=== PATIENT | male | born 1975 | race Caucasian/White ===

== ENCOUNTER 2019-09-30 17:04 | Inpatient (IN) ==
[2019-09-30] MEDS ORDERED: NITROGLYCERIN 2% OINTMENT 30GM TUBE EXT STA (17:35)
[2019-09-30] MEDS ORDERED: ASPIRIN CHEW 324 MG PO STA (17:35)
[2019-09-30] MEDS ORDERED: METOPROLOL TARTRATE 1 MG/ML VIAL IV STA (17:35)
--- NOTE | 2019-09-30 17:39 | Emergency Department Note ---
Impression & Plan Precordial chest pain, Anemia, SOB (shortness of breath), Heme positive stool ED Provider Note NAME: CATHIE EPPS III AGE: 44 SEX: M : 1975 ARRIVES VIA: Walk-In INFORMANT: [Patient] ED PROVIDER(S): [Tristan Suero MD] CHIEF COMPLAINT: Chest pain HISTORY OF PRESENT ILLNESS: The patient is a 44-year-old male presents to the ER with a 10-minute episode of sharp left chest pain that he rates as a 6/10. The pain came on at rest. He took a nitroglycerin and the pain seemed to resolve. The pain did not radiate. He was not sweating or nauseated. The patient states that in the last 2 weeks, he has noticed some dyspnea on exertion although there has been no chest pain on exertion. The patient has not had cough, cold or congestion. He has not had a fever. He has no known coronavirus exposures. The patient states that he did have a heart attack about a year and a half ago. He states that he has an LAD stent. He is on aspirin daily. Patient has never had a DVT or PE, he has no family history of this diagnosis. He has not been immobile in a plane, car or train. REVIEW OF SYSTEMS: See HPI for pertinent positives and negatives. A total of ten systems were reviewed and were otherwise negative. PMHx/PSHx: See Below SOCIAL HISTORY: See Below. PHYSICAL EXAM: GENERAL: Patient is in no acute distress. HEENT: No acute trauma, normocephalic atraumatic, mucous membranes moist, no nasal congestion, no scleral icterus. NECK: No stridor, no adenopathy, no meningismus, trachea is midline. LUNGS: Clear to auscultation bilaterally, no wheeze, no rhonchi, breath sounds equal. HEART: Mildly tachycardic, regular rhythm, no murmurs. ABDOMEN: Soft, nontender, bowel sounds positive, no hernias, no peritonitis. EXTREMITIES: No cyanosis or edema, full range of motion of all the joints without pain or difficulty, no signs for acute trauma. NEUROLOGIC: Oriented x 3, no acute motor or sensory deficits, no focal weakness. SKIN: No rash, no jaundice, no diaphoresis. Rectal: Brown stool, heme positive. DIFFERENTIAL DIAGNOSIS: Cardiac ischemia, aortic dissection, pulmonary embolism, pneumothorax, pneumonia, pericarditis, myocarditis, esophageal rupture, GERD, cholecystitis, pancreatitis, musculoskeletal, as well as other pathologies. EMERGENCY DEPARTMENT COURSE/PROCEDURES: ECG: Indication was chest pain. The ECG shows a normal sinus rhythm with a rate of 100. There is some very subtle ST depression laterally. The QTc is 438. No PVCs. Compared to an ECG from 23 May 2018, there is no significant change. Continuous Cardiac Monitoring: An order was placed for continuous cardiac monitoring. The monitor shows a rate of 96 with normal sinus rhythm. MEDICAL DECISION MAKING: There is no leukocytosis. The patient is anemic with a hemoglobin of 10, this is a new finding for him. There is a normal platelet count. No coagulopathy. There is some mild renal insufficiency with a creatinine of 1.43. No concerning electrolyte abnormality in need of correction. There was no liver enzyme elevation. No evidence for pancreatitis. EKG showed a sinus rhythm, there was no acute ischemia. Cardiac enzyme testing x1 is not consistent with acute cardiac injury. Chest film did not show pneumonia or CHF, there was no mediastinal widening. Rectal exam was performed and was heme positive. The patient presents with shortness of breath and chest pain. He received IV saline for hydration. He was given a dose of IV Protonix given the findings of anemia and heme positive stool. He received a dose of oral aspirin for his complaints of chest pain. He was placed on 1 inch of Nitropaste. Patient presents with precordial chest pain and shortness of breath. He does have a coronary history. I do think further monitoring/work-up in the hospital is warranted. With the findings of anemia, GI bleeding is a concern and certainly, this loss of blood could have led to his other symptoms. I did speak with the patient, I spoke with the family preservation caseworker. The on-call hospitalist was consulted. 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 Beliefs That Will Affect Care: None marital status: single Current Living Situation: Alone current occupational status: employed current occupation: [employer] Other Information That Helps Us Care for You: No Feels Safe at Home: Yes Safety Concerns: Feels Safe At This Time Smoking Status: Former smoker Tobacco Type: cigarettes ; Cigarettes Per Day: 20 ; Do You Dip or Chew Tobacco: No ; Second Hand Exposure: No ; Hx Alcohol Use: Yes Alcohol type: hard liquor Hx Substance Use: No Allergies Allergies Allergy/AdvReac Type Severity Reaction Status Date / Time No Known Drug Allergies Allergy Unknown Verified 09/30/19 19:17 lactose AdvReac U Unknown Verified 09/30/19 19:17 YELLOW JACKETS Allergy Anaphylaxis Uncoded 09/30/19 19:17 Home Meds Home Medications Medication Instructions Recorded Confirmed buspirone 15 mg PO BID 04/25/18 09/30/19 lorazepam 0.5 mg tablet 0.5 mg PO TID PRN tab 11/12/18 09/30/19 omeprazole 20 mg tablet,delayed 20 mg PO DAILY tab 02/04/19 09/30/19 release bupropion HCl [Wellbutrin XL] 300 mg PO DAILY 07/29/19 09/30/19 triamcinolone acetonide 2 sprays INTRANASAL DAILY PRN 07/29/19 09/30/19 biotin 5 mg PO DAILY 09/30/19 09/30/19 cetirizine [Zyrtec] 10 mg PO DAILY 09/30/19 09/30/19 citalopram 5 mg PO DAILY 09/30/19 09/30/19 coenzyme Q10 [CoQ-10] 100 mg PO DAILY 09/30/19 09/30/19 metformin 500 mg PO BID 09/30/19 09/30/19 Previous Rx's Medication Instructions Recorded aspirin [Ecotrin Low Strength] 81 mg PO QAM #7 tab 04/28/18 nitroglycerin [Nitrostat] 0.4 mg SUBLINGUAL Q5M PRN #14 tab 04/28/18 albuterol sulfate 90 mcg/actuation 2 puffs INHALATION Q6H PRN #1 gm 10/29/18 aerosol inhaler atorvastatin 80 mg tablet 80 mg PO QPM #90 tab 06/17/19 lisinopril 5 mg tablet 5 mg PO DAILY #90 tab 06/17/19 epinephrine 0.3 mg/0.3 mL 0.3 mg IM UD PRN #2 ea 08/12/19 injection, auto-injector metoprolol tartrate 25 mg tablet 12.5 mg PO BID #180 tab 09/07/19 Results & Data (ED) Vital Signs Vital Signs - 24 hr 09/30/19 17:06 09/30/19 17:32 09/30/19 17:50 Temperature 36.8 C Temperature Source Oral Pulse Rate 118 H 95 H 98 H Pulse Rate from SpO2 Sensor 97 H Respiratory Rate 20 18 15 Respiratory Effort / Characteristics Non-Labored Respiratory Depth Normal Blood Pressure 156/95 H 149/92 H Blood Pressure Mean 115 109 Blood Pressure Position Sitting Pulse Oximetry 99 96 Oxygen Delivery Method Room Air Sepsis Recent Fever Within 48 Hours No Sepsis New/Unexplained Change in Mental Status No Sepsis Action Taken by Nursing No Action Required 09/30/19 17:51 09/30/19 17:54 09/30/19 18:04 Temperature Temperature Source Pulse Rate 97 H 98 H Pulse Rate from SpO2 Sensor 99 H Respiratory Rate 20 22 Respiratory Effort / Characteristics Respiratory Depth Blood Pressure Blood Pressure Mean Blood Pressure Position Pulse Oximetry 96 93 Oxygen Delivery Method Room Air Sepsis Recent Fever Within 48 Hours Sepsis New/Unexplained Change in Mental Status Sepsis Action Taken by Nursing 09/30/19 18:06 09/30/19 18:07 09/30/19 18:09 Temperature Temperature Source Pulse Rate 98 H 98 H 94 H Pulse Rate from SpO2 Sensor 94 H Respiratory Rate 16 19 Respiratory Effort / Characteristics Respiratory Depth Blood Pressure 159/104 H 159/104 H 148/98 H Blood Pressure Mean 116 103 Blood Pressure Position Pulse Oximetry 95 Oxygen Delivery Method Sepsis Recent Fever Within 48 Hours Sepsis New/Unexplained Change in Mental Status Sepsis Action Taken by Nursing 09/30/19 18:10 09/30/19 18:30 09/30/19 18:31 Temperature Temperature Source Pulse Rate 90 94 H 93 H Pulse Rate from SpO2 Sensor 90 95 H 93 H Respiratory Rate 20 17 21 Respiratory Effort / Characteristics Respiratory Depth Blood Pressure 156/94 H Blood Pressure Mean 114 Blood Pressure Position Pulse Oximetry 96 94 95 Oxygen Delivery Method Sepsis Recent Fever Within 48 Hours Sepsis New/Unexplained Change in Mental Status Sepsis Action Taken by Nursing 09/30/19 19:00 09/30/19 19:01 Temperature Temperature Source Pulse Rate 94 H 90 Pulse Rate from SpO2 Sensor 94 H 91 H Respiratory Rate 21 18 Respiratory Effort / Characteristics Respiratory Depth Blood Pressure 163/100 H Blood Pressure Mean 112 Blood Pressure Position Pulse Oximetry 94 93 Oxygen Delivery Method Sepsis Recent Fever Within 48 Hours Sepsis New/Unexplained Change in Mental Status Sepsis Action Taken by Skilled Nursing Medications Current Medication List: was personally reviewed by me Laboratory Data Attestation: I reviewed the patient's lab results. Result diagrams: 09/30/19 23:17 09/30/19 17:48 Lab Results 09/30/19 09/30/19 09/30/19 Range/Units 17:48 17:48 17:48 WBC 8.67 (4.8-10.8) K/uL RBC 4.23 L (4.7-6.1) M/uL Hgb 10.0 L (14.0-18.0) g/dL Hct 32.5 L (42-52) % MCV 76.8 L (80-100) fL MCH 23.6 L (25-34) pg MCHC 30.8 L (32-36) g/dL RDW Std Deviation 50.2 H (36.4-46.3) fL RDW Coeff of Abhijeet 17.6 H (11.5-14.5) % Plt Count 302 (130-400) K/uL MPV 9.7 (7.4-10.4) fL Immature Gran % (Auto) 0.3 % Neut % (Auto) 54.8 % Lymph % (Auto) 34.1 % [place] % (Auto) 10.0 % Eos % (Auto) 0.6 % Baso % (Auto) 0.2 % Neut # (Auto) 4.74 (1.4-6.5) K/uL Lymph # (Auto) 2.96 (1.2-3.4) K/uL [place] # (Auto) 0.87 H (0.11-0.59) K/uL Eos # (Auto) 0.05 (0-0.5) K/uL Baso # (Auto) 0.02 (0-0.2) K/uL Immature Gran # (Auto) 0.03 H (0.00-0.02) K/uL PT 9.9 (9.0-12.0) Seconds INR 0.9 (0.9-1.1) APTT 24.7 (21.0-31.0) Seconds PTT Ratio 0.9 Sodium 137 (136-145) mmol/L Potassium 3.4 L (3.5-5.1) mmol/L Chloride 106 (98-107) mmol/L Carbon Dioxide 23 (21-32) mmol/L Anion Gap 8.0 (3-11) BUN 10 (7-18) mg/dl Creatinine 1.43 H (0.6-1.4) mg/dl Est Cr Clr Drug Dosing 77.4 ml/min Est GFR ( Amer) 69.5 Est GFR (Non-Af Amer) 60.0 BUN/Creatinine Ratio 7.1 L (10-20) Glucose 113 H (70-99) mg/dl Calcium 8.7 (8.5-10.1) mg/dl Magnesium 2.0 (1.8-2.4) mg/dl Total Bilirubin 0.4 (0.2-1) mg/dl AST 26 (15-37) U/L ALT 49 (12-78) U/L Alkaline Phosphatase 113 (45-117) U/L Troponin I < 0.015 (0-0.045) ng/ml Total Protein 8.2 (6.4-8.2) gm/dl Albumin 3.7 (3.4-5.0) gm/dl Globulin 4.5 H (2.5-4.0) gm/dl Albumin/Globulin Ratio 0.8 L (0.9-2) Lipase 146 (73-393) U/L Administered Medications Atorvastatin Calcium (Lipitor) 80 mg PO QPM IZABELLA Stop: 10/30/19 22:04 Last Admin: 09/30/19 23:00 Dose: 80 mg Documented by: [id number] Buspirone HCl (Buspar) 15 mg PO BID IZABELLA Stop: 10/30/19 22:04 Last Admin: 09/30/19 23:01 Dose: 15 mg Documented by: [id number] Potassium Chloride/Sodium Chloride (Normal Saline W/20 Meq Kcl) 20 meq in 1,000 mls @ 125 mls/hr IV .Q8H IZABELLA Stop: 10/01/19 14:14 Last Admin: 09/30/19 23:02 Dose: 125 mls/hr Documented by: [id number] Pantoprazole Sodium 40 mg/ (Syringe) 10 mls @ 5 mls/min IV BID IZABELLA Stop: 10/30/19 22:04 Last Admin: 09/30/19 23:02 Dose: 5 mls/min Documented by: [id number] Insulin Aspart (Novolog Flexpen) 0 units SC ACHS IZABELLA Stop: 09/30/19 23:59 Last Admin: 09/30/19 23:12 Dose: Not Given Documented by: [id number] Cosigned by: [id number] Metoprolol Tartrate (Lopressor) 12.5 mg PO BID IZABELLA Stop: 10/30/19 22:04 Last Admin: 09/30/19 23:01 Dose: 12.5 mg Documented by: [id number] Discontinued Medications Aspirin (Aspirin) 324 mg PO NOW STA Stop: 09/30/19 17:36 Last Admin: 09/30/19 18:04 Dose: 324 mg Documented by: [id number] Sodium Chloride (Nss) 500 mls @ 999 mls/hr IV .Q31M IZABELLA Stop: 09/30/19 18:15 Last Infusion: 09/30/19 18:38 Dose: 0 mls/hr Documented by: [id number] Admin: 09/30/19 18:03 Dose: 999 mls/hr Documented by: [id number] Pantoprazole Sodium 80 mg/ (Dextrose) 100 mls @ 400 mls/hr IV ONE STA Stop: 09/30/19 18:49 Last Infusion: 09/30/19 19:21 Dose: 0 mls/hr Documented by: [id number] Admin: 09/30/19 19:01 Dose: 400 mls/hr Documented by: [id number] Metoprolol Tartrate (Lopressor) 5 mg IV NOW STA Stop: 09/30/19 17:36 Last Admin: 09/30/19 18:06 Dose: 5 mg Documented by: [id number] Nitroglycerin (Nitro-Bid 2%) 1 inch EXT NOW STA Stop: 09/30/19 17:36 Last Admin: 09/30/19 18:04 Dose: 1 inch Documented by: [id number] Imaging Data Radiologist's Impression: XR chest 1V portable CLINICAL HISTORY: Chest Pain dyspnea COMPARISON STUDY: 05/23/2018 FINDINGS: The bones soft tissues and hemidiaphragms are normal. The cardiomediastinal silhouette is normal. The lungs are clear. The pulmonary vasculature is normal. IMPRESSION: Negative chest. Blood Pressure Blood Pressure Findings: Elevated blood pressure Blood Pressure Disposition: further management by hospitalist Discharge Plan Visit Data Chief Complaint: Chest Pain Stated Complaint: CHEST PAIN,TOOK NITRO ED Provider: Tristan Suero Discharge Problem: Precordial chest pain, Anemia, SOB (shortness of breath), Heme positive stool Patient Disposition: Admitted As Inpatient Condition: Good Discharge Problem: Anemia Qualifiers: Anemia type: unspecified type Qualified Code(s): D64.9 - Anemia, unspecified
[2019-09-30] MEDS ORDERED: SODIUM CHLORIDE 0.9% 500 ML IV SCH (17:45)
--- NOTE | 2019-09-30 17:47 | XRay Report ---
XR chest 1V portable CLINICAL HISTORY: Chest Pain dyspnea COMPARISON STUDY: 05/23/2018 FINDINGS: The bones soft tissues and hemidiaphragms are normal. The cardiomediastinal silhouette is n ormal. The lungs are clear. The pulmonary vasculature is normal. IMPRESSION: Negative chest. ACT 112: Negative or not required by law. The above report was generated using voice recognition software. It may contain grammatical, syntax or spelling errors. Electronically signed by: Kareem Lozano M.D. 09/30/2019 5:46 PM
[2019-09-30 18:08] LABS: Basophils # (auto) 0.02 K/uL (0-0.2); Basophils % (auto) 0.2 %; Eosinophils # (auto) 0.05 K/uL (0-0.5); Eosinophils % (auto) 0.6 %; Hematocrit (blood only) 32.5 % (42-52); Immature Granulocytes # (auto) 0.03 K/uL (0.00-0.02); Immature Granulocytes % (auto) 0.3 %; Lymphocytes # (auto) 2.96 K/uL (1.2-3.4); Lymphocytes % (auto) 34.1 %; Mean Corpuscular Hemoglobin 23.6 pg (25-34); Mean Corpuscular Hgb Conc 30.8 g/dL (32-36); Mean Corpuscular Volume 76.8 fL (80-100); Mean Platelet Volume 9.7 fL (7.4-10.4); Monocytes # (auto) 0.87 K/uL (0.11-0.59); Neutrophils # (auto) 4.74 K/uL (1.4-6.5); Neutrophils % (auto) 54.8 %; Platelet Count 302 K/uL (130-400); RDW Coefficient of Variation 17.6 % (11.5-14.5); RDW Standard Deviation 50.2 fL (36.4-46.3); Red Blood Count 4.23 M/uL (4.7-6.1); White Blood Count 8.67 K/uL (4.8-10.8)
[2019-09-30 18:18] LABS: INR 0.9 (0.9-1.1); Partial Thromboplastin Ratio 0.9; Partial Thromboplastin Time 24.7 Seconds (21.0-31.0); Prothrombin Time 9.9 Seconds (9.0-12.0)
[2019-09-30 18:27] LABS: Alanine Aminotransferase 49 U/L (12-78); Albumin Level 3.7 gm/dl (3.4-5.0); Aspartate Aminotransferase 26 U/L (15-37); BUN Creatinine Ratio 7.1 (10-20); Blood Urea Nitrogen 10 mg/dl (7-18); Calcium 8.7 mg/dl (8.5-10.1); Carbon Dioxide 23 mmol/L (21-32); Chloride 106 mmol/L (98-107); Creatinine Clr Calc Pharmacy 77.4 ml/min; Est GFR (African American) 69.5; Glucose 113 mg/dl (70-99); Lipase 146 U/L (73-393); Potassium 3.4 mmol/L (3.5-5.1); Sodium 137 mmol/L (136-145)
[2019-09-30 18:32] LABS: Albumin Globulin Ratio 0.8 (0.9-2); Alkaline Phosphatase 113 U/L (45-117); Bilirubin,Total 0.4 mg/dl (0.2-1); Globulin 4.5 gm/dl (2.5-4.0); Total Protein 8.2 gm/dl (6.4-8.2); Troponin I < 0.015 ng/ml (0-0.045)
[2019-09-30] MEDS ORDERED: PANTOprazole 80 MG in DEXTROSE 5% 100 ML IV STA (18:35)
--- NOTE | 2019-09-30 18:57 | History & Physical Report ---
Date of Service September 30, 2019 Assessment & Plan (1) Chest pain: This pt has a known cardiac history with sudden after a stress test in 11/17 and resultant LAD stent. The Patient is a 2 weeks of exertional dyspnea chest pain at rest relieved with nitro however he is also found to be anemic with heme positive stools. His initial troponin and EKG are negative and unchanged. We will trend his troponins however will will also evaluate for anemia. will check a resting echo Given the significance of his previous event and interdependence of cardiac clearance if his microcytic anemia will need to be worked up, will have cardiology input to decide if we need to pursue repeat stress tesing to rule out further CAD incase he would require EGD to eval for upper GI tract issues to cause amenia, or colonoscopy to further eval rectal bleeding. Patient given aspirin in the ER he will be continued on oxygen and a baby aspirin daily as well has metoprolol (2) CAD (coronary artery disease): Patient had a complicated history of STEMI with cardiac arrest. Patient does have an LAD stent. Patient is maintained on aspirin 81 atorvastatin 80 lisinopril 5 metoprolol 12.5 twice daily (3) Anemia: this is a micorcytic anemia that is symptomatic, HGB is 10 but maybe associated with CP/PASCUAL Patient will have a B12 folate iron studies checked hemoglobin will be checked around 11 PM and also 7 AM. Be placed on Protonix twice daily. GI consultation, to help determine if endoscopy would be required, will need cardiac issues settled prior to unless considered emergent .If procedure is required may require pre procedure covid testing He is not in need of transfusion at this point time was he develops further chest pain worse hemoglobin dropped significantly below 10 g (4) Diabetes: Patient has been on metformin 500 twice daily as an outpatient, will check A1c, and have ssi (5) Depression: Patient is on BuSpar 15 twice daily and Wellbutrin 300 a day and citalopram these will be continued (6) DVT prophylaxis: History of Present Illness Primary Care Provider: Kareem Santillan 44-year-old male presents to the ER with a 10-minute episode of left chest/upper left abdominal pain that started at rest. He took a nitroglycerin and the pain resolved. The pain did not radiate. He was not sweating or nauseated. The patient states that in the last 2 weeks, he has noticed some dyspnea on exertion although there has been no chest pain on exertion. this pt has a significant history of sudden after stress testing and subsequent stemi and LAD stent April of 2018. He typically follows with Dr Velarde. he states he has completed his brillinta and remains on aspirin. He is also found to have a microcytic anemia and states he typically has been bothered by a severely bleeding internal hemorrhoid, he states that at times it makes the toilet bowel dark red, he is found to be heme positive here in the ER Most recently he has been bothered by PASCUAL and has been in contact with Dr Reyes regarding asthma, he did have PFT's 11/17 with only very mild obstructive airway disease The patient has not had cough, cold or congestion. He has not had a fever. He has no known coronavirus exposures. Patient has never had a DVT or PE, he has no family history of this diagnosis. He has not been immobile in a plane, car or train. Allergies Allergy/AdvReac Type Severity Reaction Status Date / Time No Known Drug Allergies Allergy Unknown Verified 09/30/19 19:17 lactose AdvReac U Unknown Verified 09/30/19 19:17 YELLOW JACKETS Allergy Anaphylaxis Uncoded 09/30/19 19:17 Home Medications Home Medications Medication Instructions Recorded Confirmed Type buspirone 15 mg PO BID 04/25/18 09/30/19 History aspirin [Ecotrin Low Strength] 81 mg PO QAM #7 tab 04/28/18 09/30/19 Rx nitroglycerin [Nitrostat] 0.4 mg SUBLINGUAL Q5M PRN #14 tab 04/28/18 09/30/19 Rx albuterol sulfate 90 mcg/actuation 2 puffs INHALATION Q6H PRN #1 gm 10/29/18 09/30/19 Rx aerosol inhaler lorazepam 0.5 mg tablet 0.5 mg PO TID PRN tab 11/12/18 09/30/19 History omeprazole 20 mg tablet,delayed 20 mg PO DAILY tab 02/04/19 09/30/19 History release atorvastatin 80 mg tablet 80 mg PO QPM #90 tab 06/17/19 09/30/19 Rx lisinopril 5 mg tablet 5 mg PO DAILY #90 tab 06/17/19 09/30/19 Rx bupropion HCl [Wellbutrin XL] 300 mg PO DAILY 07/29/19 09/30/19 History triamcinolone acetonide 2 sprays INTRANASAL DAILY PRN 07/29/19 09/30/19 History epinephrine 0.3 mg/0.3 mL 0.3 mg IM UD PRN #2 ea 08/12/19 09/30/19 Rx injection, auto-injector metoprolol tartrate 25 mg tablet 12.5 mg PO BID #180 tab 09/07/19 09/30/19 Rx biotin 5 mg PO DAILY 09/30/19 09/30/19 History cetirizine [Zyrtec] 10 mg PO DAILY 09/30/19 09/30/19 History citalopram 5 mg PO DAILY 09/30/19 09/30/19 History coenzyme Q10 [CoQ-10] 100 mg PO DAILY 09/30/19 09/30/19 History metformin 500 mg PO BID 09/30/19 09/30/19 History Past Med/Surg History Family History Mother Diabetes Father Hypertension Denies family history of Prostate cancer Myocardial infarction Colorectal cancer Social History Preferred Language: Icelandic Communication Ability: Effective 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 Beliefs That Will Affect Care: None marital status: single Current Living Situation: Alone current occupational status: employed current occupation: [employer] Feels Safe at Home: Yes Smoking Status: Former smoker Tobacco Type: cigarettes ; Cigarettes Per Day: 20 ; Second Hand Exposure: No ; Hx Alcohol Use: Yes Alcohol type: hard liquor Hx Substance Use: No Review of Systems Review of Systems: Mild distress and increasing fatigue no headache, blurry or double vision no speech or swallowing issues no chest pain, pressure or palpitations shortness of breath with exertion worsening of late, no cough or wheezes no abdominal pain, nausea or vomiting, diarrhea or constipation, does have rectal bleeding no dysuria, hematuria or frequency no focal joint pain or swelling no back pain, CVA tenderness or radicular pain no bruising, bleeding or rashes no focal signs of weakness or numbness or altered sensation no complaints or anxiety or depression. Physical Exam Physical Exam: The patient appeared well nourished and normally developed. he appeared anxious Vital signs as documented. Head exam is normocephalic atraumatic no scleral icterus Neck is without JVD, thyromegaly, or carotid bruits. Lungs are clear to auscultation, no focal loss of breath sounds, no wheezes heard Cardiac exam, Rhythm is regular.. No murmurs, rubs or gallops. Abdominal exam reveals normal bowel sounds, soft non tender, no masses rectal exam performed by ER shows heme positive stools Extremities are nonedematous and both pedal pulses are normal. Neurologic exam is alert and oriented, no focal loss of strength or sensation Skin is without bruises or rashes Psychologically is without concerns for anxiety or depression Results & Data Results & Data ([facility]) Vital Signs (Past 12 Hours) Vital Signs Temp Pulse Resp BP Pulse Ox 09/30/19 18:31 93 H 21 95 09/30/19 18:30 94 H 17 156/94 H 94 09/30/19 18:10 90 20 96 09/30/19 18:09 94 H 19 148/98 H 95 09/30/19 18:07 98 H 16 159/104 H 09/30/19 18:06 98 H 159/104 H 09/30/19 18:04 98 H 22 09/30/19 17:54 93 09/30/19 17:51 97 H 20 96 09/30/19 17:50 98 H 15 149/92 H 96 09/30/19 17:32 95 H 18 09/30/19 17:06 98.2 F 118 H 20 156/95 H 99 Chest x-ray is unremarkable PG Care Time/CCT Total # of Minutes Spent Total Time Spent with Patient: Total time spent is greater than 50% in coordination of care (as documented) at patient's floor/unit and/or counseling patient: Coding Level of Care Code 88787 Initial Inpt Care Lvl 3 Diagnoses Chest pain R07.9 CAD (coronary artery disease) I25.10 Anemia D64.9 Diabetes E11.9 Depression F32.9 DVT prophylaxis Z29.9
[2019-09-30] MEDS ORDERED: LORazepam 0.5 MG TAB PO PRN (22:05)
[2019-09-30] MEDS ORDERED: NITROGLYCERIN SL 0.4 MG/TAB TAB SL PRN (22:05)
[2019-09-30] MEDS ORDERED: CARBOHYDRATES FOR HYPOGLYCEMIA PO PRN (22:05)
[2019-09-30] MEDS ORDERED: ALUMINUM/MAGNESIUM SUSP 30 ML UDC PO PRN (22:05)
[2019-09-30] MEDS ORDERED: ONDANSETRON INJ 2 MG/ML 2 ML VIAL IV PRN (22:05)
[2019-09-30] MEDS ORDERED: MoRPHine SULFATE 2 MG/ML CARP IV PRN (22:05)
[2019-09-30] MEDS ORDERED: GLUCOSE 10 TABS/TUBE PO PRN (22:05)
[2019-09-30] MEDS ORDERED: DEXTROSE 50% 50 ML SYRINGE IV PRN (22:05)
[2019-09-30] MEDS ORDERED: GLUCOSE 40% GEL 15 GM TUBE PO PRN (22:05)
[2019-09-30] MEDS ORDERED: ACETAMINOPHEN 325 MG TAB PO PRN (22:05)
[2019-09-30] MEDS ORDERED: GLUCAGON FOR INJ 1 MG VIAL SQ PRN (22:05)
[2019-09-30] MEDS ORDERED: INSULIN ASPART 100 UNITS/ML 3 ML PEN SC SCH (22:05)
[2019-09-30] MEDS: ATORVASTATIN 40 MG TAB PO SCH (23:00)
[2019-09-30] MEDS: BusPIRone 15 MG TAB PO SCH (23:01)
[2019-09-30] MEDS: METOPROLOL TARTRATE 25 MG TAB PO SCH (23:01)
[2019-09-30] MEDS: PANTOprazole 40 MG in SYRINGE 0 ML IV SCH (23:02)
[2019-09-30] MEDS: NSS + 20MEQ KCL 20 MEQ/1,000 ML BAG IV SCH (23:02)
[2019-09-30] MEDS ORDERED: PHARMACY GLYCEMIC MGMT CONSULT PRN (23:05)
[2019-09-30] MEDS: INSULIN ASPART 100 UNITS/ML 3 ML PEN SC SCH (23:37)
[2019-10-01 05:49] LABS: Hematocrit (blood only) 29.3 % (42-52); Hemoglobin 8.7 g/dL (14.0-18.0); Mean Corpuscular Hemoglobin 23.5 pg (25-34); Mean Corpuscular Hgb Conc 29.7 g/dL (32-36); Mean Corpuscular Volume 79.2 fL (80-100); Mean Platelet Volume 9.6 fL (7.4-10.4); Platelet Count 268 K/uL (130-400); RDW Coefficient of Variation 17.9 % (11.5-14.5); RDW Standard Deviation 51.7 fL (36.4-46.3); White Blood Count 9.63 K/uL (4.8-10.8)
[2019-10-01 05:58] LABS: Estimated Average Glucose 151 mg/dl; Hemoglobin A1C 6.9 % (4.5-5.6)
[2019-10-01] MEDS: INSULIN ASPART 100 UNITS/ML 3 ML PEN SC SCH ×3 (06:20→18:46)
[2019-10-01] MEDS: NSS + 20MEQ KCL 20 MEQ/1,000 ML BAG IV SCH (06:20)
[2019-10-01 06:26] LABS: BUN Creatinine Ratio 8.9 (10-20); Blood Urea Nitrogen 13 mg/dl (7-18); Calcium 7.7 mg/dl (8.5-10.1); Carbon Dioxide 25 mmol/L (21-32); Chloride 112 mmol/L (98-107); Creatinine Clr Calc Pharmacy 79.4 ml/min; Est GFR (African American) 71.3; Est GFR (Non-African American) 61.5; Glucose 100 mg/dl (70-99); Sodium 140 mmol/L (136-145)
[2019-10-01 06:31] LABS: Iron 18 mcg/dl (35-175); Total Iron Binding Capacity 406 mcg/dl (250-450); Troponin I < 0.015 ng/ml (0-0.045)
[2019-10-01 07:43] LABS: Folate (Folic Acid) 9.57 ng/ml (>5.38)
--- NOTE | 2019-10-01 08:17 | Electrocardiogram Report ---
Test Reason : Blood Pressure : / mmHG Vent. Rate : 100 BPM Atrial Rate : 100 BPM P-R Int : 156 ms QRS Dur : 110 ms QT Int : 340 ms P-R-T Axes : 048 044 028 degrees QTc Int : 438 ms Normal sinus rhythm Minor ST depression in Anterior leads Abnormal ECG When compared with ECG of 23-MAY-2018 19:30, Minor ST depression in Anterior leads now present Confirmed by Luis Montes ([id number]) on 10/01/2019 8:16:29 AM Referred By: REFERRED SELF Confirmed By:Luis Montes
--- NOTE | 2019-10-01 08:33 | Electrocardiogram Report ---
Test Reason : Blood Pressure : / mmHG Vent. Rate : 085 BPM Atrial Rate : 085 BPM P-R Int : 172 ms QRS Dur : 106 ms QT Int : 382 ms P-R-T Axes : 050 044 042 degrees QTc Int : 454 ms Normal sinus rhythm Incomplete right bundle branch block Borderline ECG When compared with ECG of 30-SEP-2019 17:13, Minor ST depression in Anterior leads no longer present Confirmed by Luis Montes ([id number]) on 10/01/2019 8:32:57 AM Referred By: REFERRED SELF Confirmed By:Luis Montes
[2019-10-01] MEDS: BuPROPion XL 300 MG TABCR PO SCH (08:34)
[2019-10-01] MEDS: BusPIRone 15 MG TAB PO SCH ×2 (08:34→20:38)
[2019-10-01] MEDS: CITALOPRAM 20 MG TAB PO SCH (08:35)
[2019-10-01] MEDS: ASPIRIN 81 MG ECTAB PO SCH (08:35)
[2019-10-01] MEDS: PANTOprazole 40 MG in SYRINGE 0 ML IV SCH ×2 (08:35→20:37)
[2019-10-01] MEDS: METOPROLOL TARTRATE 25 MG TAB PO SCH ×2 (08:35→20:38)
[2019-10-01] MEDS: lisinopriL 5 MG TAB PO SCH (08:35)
[2019-10-01] MEDS: FLUTICASONE FUROATE 200MCG 14 PUFFS/INHALER INH SCH (08:36)
--- NOTE | 2019-10-01 10:07 | XCELERA ---
[id number]
--- NOTE | 2019-10-01 10:57 | Gastrointestinal Consultation ---
Date of Consultation October 01, 2019 Assessment & Plan (1) Anemia: -Continue to monitor H/H -Protonix 40 mg IV BID -Check Celiac panel -Agree with cardiology assessment of chest pain first, then can consider endoscopic evaluation of anemia & rectal bleeding. -Supportive care per primary team Thank you for allowing us to participate in the care of this patient. If you should have any questions or concerns contact us at extension [phone] or [phone]. Supervising Physician Co-Signing Physician Notes Agree with JOSETTE Arrington Abd: Soft, NT, ND, +BS Cardiology to risk assess patient regarding endoscopic workup Will place on clear liquid diet, and keep NPO after midnight in case we can proceed with EGD + or - Colonoscopy Continue current therapy and supportive care. History of Present Illness Attending Physician: Jannette Coe MD History of Present Illness Patient is a 44 yo male who presented to the ED with chest pain. He has a known cardiac history with a sudden cardiac in October 2018 after a stress test. He did have an intervention at that time with an LAD stent. GI has been consulted as patient is anemic. In May 2018, his hemoglobin was 15.3. His H/H is now 8.7/29.3. He reports bright red blood per rectum with every bowel movement. He also reports epigastric discomfort/reflux. He takes Omeprazole at home, but notes that when he forgets this med his symptoms worsen. He denies NSAID use. He denies personal history of GI issues otherwise. He denies family history of GI malignancy or IBD. Allergies Allergy/AdvReac Type Severity Reaction Status Date / Time No Known Drug Allergies Allergy Unknown Verified 09/30/19 19:17 lactose AdvReac U Unknown Verified 09/30/19 19:17 YELLOW JACKETS Allergy Anaphylaxis Uncoded 09/30/19 19:17 Home Medications Home Medications Medication Instructions Recorded Confirmed Type buspirone 15 mg PO BID 04/25/18 09/30/19 History aspirin [Ecotrin Low Strength] 81 mg PO QAM #7 tab 04/28/18 09/30/19 Rx nitroglycerin [Nitrostat] 0.4 mg SUBLINGUAL Q5M PRN #14 tab 04/28/18 09/30/19 Rx albuterol sulfate 90 mcg/actuation 2 puffs INHALATION Q6H PRN #1 gm 10/29/18 09/30/19 Rx aerosol inhaler lorazepam 0.5 mg tablet 0.5 mg PO TID PRN tab 11/12/18 09/30/19 History omeprazole 20 mg tablet,delayed 20 mg PO DAILY tab 02/04/19 09/30/19 History release atorvastatin 80 mg tablet 80 mg PO QPM #90 tab 06/17/19 09/30/19 Rx lisinopril 5 mg tablet 5 mg PO DAILY #90 tab 06/17/19 09/30/19 Rx bupropion HCl [Wellbutrin XL] 300 mg PO DAILY 07/29/19 09/30/19 History triamcinolone acetonide 2 sprays INTRANASAL DAILY PRN 07/29/19 09/30/19 History epinephrine 0.3 mg/0.3 mL 0.3 mg IM UD PRN #2 ea 08/12/19 09/30/19 Rx injection, auto-injector metoprolol tartrate 25 mg tablet 12.5 mg PO BID #180 tab 09/07/19 09/30/19 Rx biotin 5 mg PO DAILY 09/30/19 09/30/19 History cetirizine [Zyrtec] 10 mg PO DAILY 09/30/19 09/30/19 History citalopram 5 mg PO DAILY 09/30/19 09/30/19 History coenzyme Q10 [CoQ-10] 100 mg PO DAILY 09/30/19 09/30/19 History metformin 500 mg PO BID 09/30/19 09/30/19 History Patient History Medical History Cardiac arrest April 2018 Coronary disease PCI to the LAD April 2018 Depression Exercise-induced asthma GERD (gastroesophageal reflux disease) (Acute) Hyperlipidemia Hypertension (Acute) Prediabetes Surgical History No pertinent past surgical history Family History Mother Diabetes Father Hypertension Denies family history of Prostate cancer Myocardial infarction Colorectal cancer Social History Preferred Language: Romanian Communication Ability: Effective 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 Beliefs That Will Affect Care: None marital status: single Current Living Situation: Alone current occupational status: employed current occupation: [employer] Feels Safe at Home: Yes Smoking Status: Former smoker Tobacco Type: cigarettes ; Cigarettes Per Day: 20 ; Second Hand Exposure: No ; Hx Alcohol Use: Yes Alcohol type: hard liquor Hx Substance Use: No Review of Systems Constitutional: no fever and no chills Eyes: no problem reported Ear, Nose, Mouth, Throat: no problem reported Respiratory: + dyspnea on exertion; no cough Cardiovascular: + chest pain Gastrointestinal: + heartburn and + blood in stools Musculoskeletal: no joint pain Integumentary: no rash Neurologic: no problem reported Psychiatric: no problem reported Physical Exam Constitutional: WD/WN, vitals as above Eyes: PERRL, conjunctivae normal, anicteric sclerae Neck: normal visual inspection Respiratory: normal respiratory effort, lungs clear to auscultation Cardiovascular: RRR, no murmur, no edema Gastrointestinal (Abdomen): normal bowel sounds, soft, nontender, no hepatosplenomegaly Musculoskeletal: no cyanosis or clubbing, extremities motor strength 5/5 Skin: no rashes, warm and dry Psychiatric: A+Ox3, euthymic affect Results & Data ([facility]) Vital Signs (Past 12 Hours) Vital Signs Temp Pulse Resp BP Pulse Ox Pulse Ox 10/01/19 07:40 36.7 C 74 20 135/84 96 10/01/19 04:30 36.4 C L 77 17 154/95 H 96 10/01/19 04:00 36.7 C 77 18 137/67 94 10/01/19 00:00 36.9 C 78 20 122/76 94 09/30/19 23:28 37 C 80 20 94 94 PG Care Time/CCT Total # of Minutes Spent Total Time Spent with Patient: Total time spent is greater than 50% in coordination of care (as documented) at patient's floor/unit and/or counseling patient: Coding Level of Care Code 27429 Inpt Consult Level 4 Diagnoses Anemia D64.9 Anemia type: unspecified type (1) Anemia Anemia type: unspecified type Qualified Code(s): D64.9 - Anemia, unspecified
--- NOTE | 2019-10-01 12:01 | Hospitalist Progress Note ---
Date of Service October 01, 2019 Assessment & Plan (1) Chest pain: 44-year-old male presents to the ER with a 10-minute episode of left chest/upper left abdominal pain that started at rest. He took a nitroglycerin and the pain resolved. Chest pain: - 10 minute episode of chest pain, resolved by nitroglycerin - initial EKG concerning for some anterior lead ST depressions, not present on repeat this AM - troponin negative x2 - Cardiology consulted - with known cardiac history and stents, anemia can precipitate chest pain; however will continue to monitor given patient sudden cardiac history with subsequent stenting of LAD Anemia: - hgb 8.9 on admission - with history of internal hemorrhoid with known profuse bleeds - GI consulted for potential procedure for elucidation of bleeding source - Celiac panel pending - protonix 40mg IV BID - will continue to follow H/H Diet: NPO DVT ppx: held in the setting of uncertain bleeding source Code: Full Code (2) Anemia: Admission and Anticipated Discharge Date Admission Date: September 30, 2019 Subjective No continued chest pain or discomfort, no shortness of breath, no abdominal pain, no changes in bowel movements. States that he will regularly have one loose bloody bowel movement that happens sporadically. Was previously told that this was a result of his internal hemorrhoid. Never had any rectal pain or discomfort but will occasionally note that he will feel like he has to go to the bathroom and then he will only pass blood. Review of Systems Review of Systems: All systems reviewed & are unremarkable except as noted in Subjective Physical Exam Constitutional: WD/WN, vitals as above Eyes: PERRL, conjunctivae normal, anicteric sclerae Neck: normal visual inspection Respiratory: normal respiratory effort, lungs clear to auscultation Cardiovascular: Rate/Rhythm: regular rate and regular rhythm Heart Sounds: normal S1 and normal S2; no gallop, no murmur and no cardiac rub Vessels: no JVD Extremities: no pedal edema Gastrointestinal (Abdomen): Inspection/Auscultation: abdomen normal to inspect ion and normal bowel sounds; abdomen not distended Percussion/Palpation: + abdomen tender (epigastric) and abdomen soft; no guarding and no hepatosplenomegaly Musculoskeletal: palpable costal tenderness over L anterior axillary line Skin: no rashes, warm and dry Psychiatric: A+Ox3, euthymic affect Results & Data Results & Data ([facility]) Vital Signs (Past 12 Hours) Vital Signs Temp Pulse Resp BP Pulse Ox 10/01/19 07:40 36.7 C 74 20 135/84 96 10/01/19 04:30 36.4 C L 77 17 154/95 H 96 10/01/19 04:00 36.7 C 77 18 137/67 94 10/01/19 00:00 36.9 C 78 20 122/76 94 Laboratory Results 10/01/19 10/01/19 10/01/19 Range/Units 11:05 06:14 05:23 WBC (4.8-10.8) K/uL RBC (4.7-6.1) M/uL Hgb (14.0-18.0) g/dL Hct (42-52) % MCV (80-100) fL MCH (25-34) pg MCHC (32-36) g/dL RDW Std Deviation (36.4-46.3) fL RDW Coeff of Abhijeet (11.5-14.5) % Plt Count (130-400) K/uL MPV (7.4-10.4) fL Immature Gran % (Auto) % Neut % (Auto) % Lymph % (Auto) % [place] % (Auto) % Eos % (Auto) % Baso % (Auto) % Neut # (Auto) (1.4-6.5) K/uL Lymph # (Auto) (1.2-3.4) K/uL [place] # (Auto) (0.11-0.59) K/uL Eos # (Auto) (0-0.5) K/uL Baso # (Auto) (0-0.2) K/uL Immature Gran # (Auto) (0.00-0.02) K/uL PT (9.0-12.0) Seconds INR (0.9-1.1) APTT (21.0-31.0) Seconds PTT Ratio Sodium (136-145) mmol/L Potassium (3.5-5.1) mmol/L Chloride (98-107) mmol/L Carbon Dioxide (21-32) mmol/L Anion Gap (3-11) BUN (7-18) mg/dl Creatinine (0.6-1.4) mg/dl Est Cr Clr Drug Dosing ml/min Est GFR ( Amer) Est GFR (Non-Af Amer) BUN/Creatinine Ratio (10-20) Glucose (70-99) mg/dl POC Glucose 126 H (70-99) mg/dl Estimat Average Glucose mg/dl Hemoglobin A1c (4.5-5.6) % Calcium (8.5-10.1) mg/dl Magnesium (1.8-2.4) mg/dl Iron (35-175) mcg/dl TIBC (250-450) mcg/dl Total Bilirubin (0.2-1) mg/dl AST (15-37) U/L ALT (12-78) U/L Alkaline Phosphatase (45-117) U/L Troponin I (0-0.045) ng/ml Total Protein (6.4-8.2) gm/dl Albumin (3.4-5.0) gm/dl Globulin (2.5-4.0) gm/dl Albumin/Globulin Ratio (0.9-2) Lipase (73-393) U/L Vitamin B12 278 (211-911) pg/ml Folate 9.57 (>5.38) ng/ml IgA Pending Tiss Transglutamin IgA Pending Celiac Disease Interp Pending 10/01/19 10/01/19 10/01/19 Range/Units 05:23 05:23 05:23 WBC 9.63 (4.8-10.8) K/uL RBC 3.70 L (4.7-6.1) M/uL Hgb 8.7 L (14.0-18.0) g/dL Hct 29.3 L (42-52) % MCV 79.2 L (80-100) fL MCH 23.5 L (25-34) pg MCHC 29.7 L (32-36) g/dL RDW Std Deviation 51.7 H (36.4-46.3) fL RDW Coeff of Abhijeet 17.9 H (11.5-14.5) % Plt Count 268 (130-400) K/uL MPV 9.6 (7.4-10.4) fL Immature Gran % (Auto) % Neut % (Auto) % Lymph % (Auto) % [place] % (Auto) % Eos % (Auto) % Baso % (Auto) % Neut # (Auto) (1.4-6.5) K/uL Lymph # (Auto) (1.2-3.4) K/uL [place] # (Auto) (0.11-0.59) K/uL Eos # (Auto) (0-0.5) K/uL Baso # (Auto) (0-0.2) K/uL Immature Gran # (Auto) (0.00-0.02) K/uL PT (9.0-12.0) Seconds INR (0.9-1.1) APTT (21.0-31.0) Seconds PTT Ratio Sodium 140 (136-145) mmol/L Potassium 4.0 D (3.5-5.1) mmol/L Chloride 112 H (98-107) mmol/L Carbon Dioxide 25 (21-32) mmol/L Anion Gap 3.0 (3-11) BUN 13 (7-18) mg/dl Creatinine 1.40 (0.6-1.4) mg/dl Est Cr Clr Drug Dosing 79.4 ml/min Est GFR ( Amer) 71.3 Est GFR (Non-Af Amer) 61.5 BUN/Creatinine Ratio 8.9 L (10-20) Glucose 100 H (70-99) mg/dl POC Glucose (70-99) mg/dl Estimat Average Glucose 151 mg/dl Hemoglobin A1c 6.9 H (4.5-5.6) % Calcium 7.7 L (8.5-10.1) mg/dl Magnesium (1.8-2.4) mg/dl Iron 18 L (35-175) mcg/dl TIBC 406 (250-450) mcg/dl Total Bilirubin (0.2-1) mg/dl AST (15-37) U/L ALT (12-78) U/L Alkaline Phosphatase (45-117) U/L Troponin I < 0.015 (0-0.045) ng/ml Total Protein (6.4-8.2) gm/dl Albumin (3.4-5.0) gm/dl Globulin (2.5-4.0) gm/dl Albumin/Globulin Ratio (0.9-2) Lipase (73-393) U/L Vitamin B12 (211-911) pg/ml Folate (>5.38) ng/ml IgA Tiss Transglutamin IgA Celiac Disease Interp 0709/30/19 09/30/19 Range/Units 23:17 23:11 17:48 WBC (4.8-10.8) K/uL RBC (4.7-6.1) M/uL Hgb 8.9 L (14.0-18.0) g/dL Hct (42-52) % MCV (80-100) fL MCH (25-34) pg MCHC (32-36) g/dL RDW Std Deviation (36.4-46.3) fL RDW Coeff of Abhijeet (11.5-14.5) % Plt Count (130-400) K/uL MPV (7.4-10.4) fL Immature Gran % (Auto) % Neut % (Auto) % Lymph % (Auto) % [place] % (Auto) % Eos % (Auto) % Baso % (Auto) % Neut # (Auto) (1.4-6.5) K/uL Lymph # (Auto) (1.2-3.4) K/uL [place] # (Auto) (0.11-0.59) K/uL Eos # (Auto) (0-0.5) K/uL Baso # (Auto) (0-0.2) K/uL Immature Gran # (Auto) (0.00-0.02) K/uL PT (9.0-12.0) Seconds INR (0.9-1.1) APTT (21.0-31.0) Seconds PTT Ratio Sodium 137 (136-145) mmol/L Potassium 3.4 L (3.5-5.1) mmol/L Chloride 106 (98-107) mmol/L Carbon Dioxide 23 (21-32) mmol/L Anion Gap 8.0 (3-11) BUN 10 (7-18) mg/dl Creatinine 1.43 H (0.6-1.4) mg/dl Est Cr Clr Drug Dosing 77.4 ml/min Est GFR ( Amer) 69.5 Est GFR (Non-Af Amer) 60.0 BUN/Creatinine Ratio 7.1 L (10-20) Glucose 113 H (70-99) mg/dl POC Glucose 123 H (70-99) mg/dl Estimat Average Glucose mg/dl Hemoglobin A1c (4.5-5.6) % Calcium 8.7 (8.5-10.1) mg/dl Magnesium 2.0 (1.8-2.4) mg/dl Iron (35-175) mcg/dl TIBC (250-450) mcg/dl Total Bilirubin 0.4 (0.2-1) mg/dl AST 26 (15-37) U/L ALT 49 (12-78) U/L Alkaline Phosphatase 113 (45-117) U/L Troponin I < 0.015 (0-0.045) ng/ml Total Protein 8.2 (6.4-8.2) gm/dl Albumin 3.7 (3.4-5.0) gm/dl Globulin 4.5 H (2.5-4.0) gm/dl Albumin/Globulin Ratio 0.8 L (0.9-2) Lipase 146 (73-393) U/L Vitamin B12 (211-911) pg/ml Folate (>5.38) ng/ml IgA Tiss Transglutamin IgA Celiac Disease Interp 09/30/19 09/30/19 Range/Units 17:48 17:48 WBC 8.67 (4.8-10.8) K/uL RBC 4.23 L (4.7-6.1) M/uL Hgb 10.0 L (14.0-18.0) g/dL Hct 32.5 L (42-52) % MCV 76.8 L (80-100) fL MCH 23.6 L (25-34) pg MCHC 30.8 L (32-36) g/dL RDW Std Deviation 50.2 H (36.4-46.3) fL RDW Coeff of Abhijeet 17.6 H (11.5-14.5) % Plt Count 302 (130-400) K/uL MPV 9.7 (7.4-10.4) fL Immature Gran % (Auto) 0.3 % Neut % (Auto) 54.8 % Lymph % (Auto) 34.1 % [place] % (Auto) 10.0 % Eos % (Auto) 0.6 % Baso % (Auto) 0.2 % Neut # (Auto) 4.74 (1.4-6.5) K/uL Lymph # (Auto) 2.96 (1.2-3.4) K/uL [place] # (Auto) 0.87 H (0.11-0.59) K/uL Eos # (Auto) 0.05 (0-0.5) K/uL Baso # (Auto) 0.02 (0-0.2) K/uL Immature Gran # (Auto) 0.03 H (0.00-0.02) K/uL PT 9.9 (9.0-12.0) Seconds INR 0.9 (0.9-1.1) APTT 24.7 (21.0-31.0) Seconds PTT Ratio 0.9 Sodium (136-145) mmol/L Potassium (3.5-5.1) mmol/L Chloride (98-107) mmol/L Carbon Dioxide (21-32) mmol/L Anion Gap (3-11) BUN (7-18) mg/dl Creatinine (0.6-1.4) mg/dl Est Cr Clr Drug Dosing ml/min Est GFR ( Amer) Est GFR (Non-Af Amer) BUN/Creatinine Ratio (10-20) Glucose (70-99) mg/dl POC Glucose (70-99) mg/dl Estimat Average Glucose mg/dl Hemoglobin A1c (4.5-5.6) % Calcium (8.5-10.1) mg/dl Magnesium (1.8-2.4) mg/dl Iron (35-175) mcg/dl TIBC (250-450) mcg/dl Total Bilirubin (0.2-1) mg/dl AST (15-37) U/L ALT (12-78) U/L Alkaline Phosphatase (45-117) U/L Troponin I (0-0.045) ng/ml Total Protein (6.4-8.2) gm/dl Albumin (3.4-5.0) gm/dl Globulin (2.5-4.0) gm/dl Albumin/Globulin Ratio (0.9-2) Lipase (73-393) U/L Vitamin B12 (211-911) pg/ml Folate (>5.38) ng/ml IgA Tiss Transglutamin IgA Celiac Disease Interp Medications Administered Current Inpatient Medications Acetaminophen (Tylenol) 650 mg PO Q4H PRN PRN Reason: Pain or Fever Stop: 10/30/19 22:04 Al Hydrox/Mg Hydrox/Simethicone (Maalox) 15 ml PO Q4H PRN PRN Reason: Dyspepsia Stop: 10/30/19 22:04 Aspirin (Ecotrin Ectab) 81 mg PO QAM IZABELLA Stop: 10/31/19 08:59 Last Admin: 10/01/19 08:35 Dose: 81 mg Documented by: Atorvastatin Calcium (Lipitor) 80 mg PO QPM IZABELLA Stop: 10/30/19 22:04 Last Admin: 09/30/19 23:00 Dose: 80 mg Documented by: Bupropion HCl (Wellbutrin-Xl) 300 mg PO DAILY IZABELLA Stop: 10/31/19 08:59 Last Admin: 10/01/19 08:34 Dose: 300 mg Documented by: Buspirone HCl (Buspar) 15 mg PO BID IZABELLA Stop: 10/30/19 22:04 Last Admin: 10/01/19 08:34 Dose: 15 mg Documented by: Citalopram Hydrobromide (Celexa) 5 mg PO DAILY IZABELLA Stop: 10/31/19 08:59 Last Admin: 10/01/19 08:35 Dose: 5 mg Documented by: Dextrose (Dextrose 50%) 25 - 50 ml IV UD PRN; Protocol PRN Reason: Hypoglycemia Protocol Stop: 10/30/19 22:04 Fluticasone Furoate (Arnuity Ellipta 200mcg) 1 puffs INH DAILY IZABELLA Stop: 10/31/19 08:59 Last Admin: 10/01/19 08:36 Dose: Not Given Documented by: Glucagon (Glucagen) 1 mg SQ UD PRN; Protocol PRN Reason: Hypoglycemia Protocol Stop: 10/30/19 22:04 Glucose (Dex4 Glucose) 4 - 8 tabs PO UD PRN; Protocol PRN Reason: Hypoglycemia Protocol Stop: 10/30/19 22:04 Glucose (Glucose 40%) 15 - 30 gm PO UD PRN; Protocol PRN Reason: Hypoglycemia Protocol Stop: 10/30/19 22:04 Potassium Chloride/Sodium Chloride (Normal Saline W/20 Meq Kcl) 20 meq in 1,000 mls @ 125 mls/hr IV .Q8H IZABELLA Stop: 10/01/19 14:14 Last Admin: 10/01/19 06:20 Dose: 125 mls/hr Documented by: Pantoprazole Sodium 40 mg/ (Syringe) 10 mls @ 5 mls/min IV BID IZABELLA Stop: 10/30/19 22:04 Last Admin: 10/01/19 08:35 Dose: 5 mls/min Documented by: Insulin Aspart (Novolog Flexpen) 0 units SC Q6 IZABELLA Stop: 10/31/19 00:00 Last Admin: 10/01/19 06:20 Dose: Not Given Documented by: Lisinopril (Zestril) 5 mg PO DAILY IZABELLA Stop: 10/31/19 08:59 Last Admin: 10/01/19 08:35 Dose: 5 mg Documented by: Lorazepam (Ativan) 0.5 mg PO TID PRN PRN Reason: Anxiety Stop: 10/30/19 22:04 Metoprolol Tartrate (Lopressor) 12.5 mg PO BID IZABELLA Stop: 10/30/19 22:04 Last Admin: 10/01/19 08:35 Dose: 12.5 mg Documented by: Miscellaneous (Carbohydrates For Hypoglycemia) 15 - 30 gm PO UD PRN PRN Reason: Hypoglycemia Protocol Stop: 10/30/19 22:04 Miscellaneous Information (Consult Glycemic Management Pharmacy) 1 ea N/A UD PRN; Protocol PRN Reason: Consult Stop: 10/30/19 23:04 Morphine Sulfate (Morphine Sulfate) 2 mg IV Q4 PRN PRN Reason: Pain Stop: 10/14/19 22:04 Nitroglycerin (Nitrostat) 0.4 mg SL UD PRN PRN Reason: Chest Pain Stop: 10/30/19 22:04 Ondansetron HCl (Zofran) 4 mg IV Q6H PRN PRN Reason: Nausea Stop: 10/30/19 22:04 Resident Activity Tracking Resident Involvement: Resident Care Provided Care Provided: Adult Hospital Medicine (1) Anemia Anemia type: unspecified type Qualified Code(s): D64.9 - Anemia, unspecified
--- NOTE | 2019-10-01 14:36 | Pharmacy Report ---
Pharmacy Glycemic Short Note 2 - Date of Service October 01, 2019 - Glycemic Short BSG Results (Last 24 hours): 09/30/19 09/30/19 10/01/19 17:48 23:11 05:23 Glucose 113 H 100 H POC Glucose 123 H 10/01/19 10/01/19 06:14 11:55 Glucose POC Glucose 126 H 115 H OUTPATIENT ANTIDIABETIC REGIMEN: * metformin 500 mg PO BID * A1c = 6.9% (10/01/19) ASSESSMENT: * Slick is a 44 yo admitted with chest pain and anemia * Pt is maintained on oral antidiabetic agents as an outpatient * Will hold oral agents for admission and utilize SQ basal bolus insulin regimen which is the recommended regimen for inpatient glycemic control. * No basal insulin at this time due to fasting BSG at goal - will reassess tomorrow * Novolog with CF/CR based on weight/stress 2 PLAN FOR INPATIENT GLYCEMIC CONTROL: * Hold outpatient oral diabetes medications * Basal insulin * none * Bolus insulin * NovoLog per scale ACHS or Q6hrs while NPO * Goal Range: Low 110 mg/dL - High 140 mg/dL * Correction Factor: 25 mg/dL/unit * Nutritional / Prandial insulin per carb ratio of 1 unit per 8 grams CHO consumed PLAN FOR DISCHARGE: * A1c = 6.9% * Continue metformin 500 mg PO BID on discharge * may consider titrating to goal dose of 1000 mg PO BID as tolerated * increase by 500 mg per week
--- NOTE | 2019-10-01 16:45 | Cardiology Consultation ---
Date of Consultation October 01, 2019 Assessment & Plan (1) Chest pain: His chest pain is decidedly noncardiac. His occurred immediately after bending over on his left side. It was not characteristic of cardiac ischemia. He was not precordial in nature. It did not resolve with use of nitroglycerin. Despite extended episode there was no elevation of his biomarkers or objective findings of ischemia. He has a normal echocardiogram. Do not think this requires further evaluation. I think he can proceed with any gastrointestinal evaluation without additional precaution. (2) CAD (coronary artery disease): He has a history of disease in the LAD. He underwent PCI of this vessel over 1 year ago. He has been maintained on aspirin which could be temporarily discontinued if necessary. He will continue on his high-dose atorvastatin beta-blockade. (3) Anemia: His symptoms leading up to admission of exercise intolerance, palpitations, tachycardia and breathing difficulty or likely related to his bloo d loss. Curiously he had no symptoms of angina or chest pain associated with activity in the setting of extremely low hemoglobin. History of Present Illness Reason for Consultation: Chest pain Requesting Physician: Eulalia Attending Physician: Jannette Coe MD History of Present Illness The patient is a 44-year-old gentleman with a history of coronary disease and cardiac arrest in April of 2018 who presented emergency room due to concerns over chest pain. Curiously, the patient was having some symptoms of dyspnea, palpitations, tachycardia an exercise intolerance for few weeks leading up to his presentation at the medical center. However, he apparently came for evaluation due to the acute onset of pain in the left subcostal area. Patient states that he was working at his desk when he bent over to pick something up and upon arising developed acute sharp pain under the left rib cage. The symptoms were not immediately alleviated in based on his history of cardiac disease the patient felt like he should take nitroglycerin. Patient did take nitroglycerin and felt somewhat dizzy afterwards. Unclear if this resolved his symptoms over time but did not resolve them acutely. Patient feels that his symptoms resolved in route to the emergency room. He continues to have an element of tenderness at that site with certain positions or palpation. He describes this as distinct sensation from other chest pains he may have had in the past. He has not had other chest pains with exertion or at rest recently. Allergies Allergy/AdvReac Type Severity Reaction Status Date / Time No Known Drug Allergies Allergy Unknown Verified 09/30/19 19:17 lactose AdvReac U Unknown Verified 09/30/19 19:17 YELLOW JACKETS Allergy Anaphylaxis Uncoded 09/30/19 19:17 Home Medications Home Medications Medication Instructions Recorded Confirmed Type buspirone 15 mg PO BID 04/25/18 09/30/19 History aspirin [Ecotrin Low Strength] 81 mg PO QAM #7 tab 04/28/18 09/30/19 Rx nitroglycerin [Nitrostat] 0.4 mg SUBLINGUAL Q5M PRN #14 tab 04/28/18 09/30/19 Rx albuterol sulfate 90 mcg/actuation 2 puffs INHALATION Q6H PRN #1 gm 10/29/18 09/30/19 Rx aerosol inhaler lorazepam 0.5 mg tablet 0.5 mg PO TID PRN tab 11/12/18 09/30/19 History omeprazole 20 mg tablet,delayed 20 mg PO DAILY tab 02/04/19 09/30/19 History release atorvastatin 80 mg tablet 80 mg PO QPM #90 tab 06/17/19 09/30/19 Rx lisinopril 5 mg tablet 5 mg PO DAILY #90 tab 06/17/19 09/30/19 Rx bupropion HCl [Wellbutrin XL] 300 mg PO DAILY 07/29/19 09/30/19 History triamcinolone acetonide 2 sprays INTRANASAL DAILY PRN 07/29/19 09/30/19 History epinephrine 0.3 mg/0.3 mL 0.3 mg IM UD PRN #2 ea 08/12/19 09/30/19 Rx injection, auto-injector metoprolol tartrate 25 mg tablet 12.5 mg PO BID #180 tab 09/07/19 09/30/19 Rx biotin 5 mg PO DAILY 09/30/19 09/30/19 History cetirizine [Zyrtec] 10 mg PO DAILY 09/30/19 09/30/19 History citalopram 5 mg PO DAILY 09/30/19 09/30/19 History coenzyme Q10 [CoQ-10] 100 mg PO DAILY 09/30/19 09/30/19 History metformin 500 mg PO BID 09/30/19 09/30/19 History Patient History Medical History Cardiac arrest April 2018 Coronary disease PCI to the LAD April 2018 Depression Exercise-induced asthma GERD (gastroesophageal reflux disease) (Acute) Hyperlipidemia Hypertension (Acute) Prediabetes Surgical History No pertinent past surgical history Family History Mother Diabetes Father Hypertension Denies family history of Prostate cancer Myocardial infarction Colorectal cancer Social History Preferred Language: Wolof Communication Ability: Effective Superintendent Communications Required: No Beliefs That Will Affect Care: None marital status: single Current Living Situation: Alone current occupational status: employed current occupation: [employer] Feels Safe at Home: Yes Smoking Status: Former smoker Tobacco Type: cigarettes ; Cigarettes Per Day: 20 ; Second Hand Exposure: No ; Hx Alcohol Use: Yes Alcohol type: hard liquor Hx Substance Use: No Review of Systems Review of Systems: All systems reviewed & are unremarkable except as noted in HPI & below No nausea or vomiting, no abdominal discomfort. Patient does report frequent bloody stools. He denied presyncope. He does have a more noticeable sensation of his heart beating with activity. Physical Exam Physical Exam: The patient is alert and oriented. Mood and affect appeared normal. He answered all questions appropriately. HEENT: Pupils are equal and reactive to light and accommodation. Extraocular movements are intact. The sclerae are anicteric. Neuro: Cranial nerves intact Neck: Patient's neck is supple. He has palpable carotid pulses bilaterally without bruits on auscultation. There is no evidence of jugular venous distention. The thyroid is not enlarged. Lungs: Clear to auscultation bilaterally. He has good air movement without use of accessory muscles. No rales wheezes or rhonchi. Cardiac: Heart demonstrates a regular rate and rhythm. Normal S1 and S2. No murmurs on examination. Pulses: The patient has palpable radial pulses bilaterally that are equal in intensity Extremities: There was no evidence of hypoperfusion. There is no cyanosis or clubbing. There is no edema. Purple fingernails Skin: I did not appreciate any rashes on examination today. Results & Data ([facility]) Vital Signs (Past 12 Hours) Vital Signs Temp Pulse Resp BP Pulse Ox 10/01/19 16:08 36.7 C 73 23 137/82 97 10/01/19 11:59 36.7 C 73 19 131/81 96 10/01/19 07:40 36.7 C 74 20 135/84 96 Laboratory Results Abnormal Lab Results 09/30/19 09/30/19 09/30/19 17:48 17:48 17:48 WBC 8.67 RBC 4.23 L Hgb 10.0 L Hct 32.5 L MCV 76.8 L MCH 23.6 L MCHC 30.8 L RDW Std Deviation 50.2 H RDW Coeff of Abhijeet 17.6 H Plt Count 302 MPV 9.7 Immature Gran % (Auto) 0.3 Neut % (Auto) 54.8 Lymph % (Auto) 34.1 Bath % (Auto) 10.0 Eos % (Auto) 0.6 Baso % (Auto) 0.2 Neut # (Auto) 4.74 Lymph # (Auto) 2.96 Bath # (Auto) 0.87 H Eos # (Auto) 0.05 Baso # (Auto) 0.02 Immature Gran # (Auto) 0.03 H PT 9.9 INR 0.9 APTT 24.7 PTT Ratio 0.9 Sodium 137 Potassium 3.4 L Chloride 106 Carbon Dioxide 23 Anion Gap 8.0 BUN 10 Creatinine 1.43 H Est Cr Clr Drug Dosing 77.4 Est GFR ( Amer) 69.5 Est GFR (Non-Af Amer) 60.0 BUN/Creatinine Ratio 7.1 L Glucose 113 H POC Glucose Estimat Average Glucose Hemoglobin A1c Calcium 8.7 Magnesium 2.0 Iron TIBC Total Bilirubin 0.4 AST 26 ALT 49 Alkaline Phosphatase 113 Troponin I < 0.015 Total Protein 8.2 Albumin 3.7 Globulin 4.5 H Albumin/Globulin Ratio 0.8 L Lipase 146 Vitamin B12 Folate 09/30/19 09/30/19 10/01/19 23:11 23:17 05:23 WBC 9.63 RBC 3.70 L Hgb 8.9 L 8.7 L Hct 29.3 L MCV 79.2 L MCH 23.5 L MCHC 29.7 L RDW Std Deviation 51.7 H RDW Coeff of Abhijeet 17.9 H Plt Count 268 MPV 9.6 Immature Gran % (Auto) Neut % (Auto) Lymph % (Auto) Bath % (Auto) Eos % (Auto) Baso % (Auto) Neut # (Auto) Lymph # (Auto) Bath # (Auto) Eos # (Auto) Baso # (Auto) Immature Gran # (Auto) PT INR APTT PTT Ratio Sodium Potassium Chloride Carbon Dioxide Anion Gap BUN Creatinine Est Cr Clr Drug Dosing Est GFR ( Amer) Est GFR (Non-Af Amer) BUN/Creatinine Ratio Glucose POC Glucose 123 H Estimat Average Glucose Hemoglobin A1c Calcium Magnesium Iron TIBC Total Bilirubin AST ALT Alkaline Phosphatase Troponin I Total Protein Albumin Globulin Albumin/Globulin Ratio Lipase Vitamin B12 Folate 10/01/19 10/01/19 10/01/19 05:23 05:23 05:23 WBC RBC Hgb Hct MCV MCH MCHC RDW Std Deviation RDW Coeff of Abhijeet Plt Count MPV Immature Gran % (Auto) Neut % (Auto) Lymph % (Auto) Bath % (Auto) Eos % (Auto) Baso % (Auto) Neut # (Auto) Lymph # (Auto) Bath # (Auto) Eos # (Auto) Baso # (Auto) Immature Gran # (Auto) PT INR APTT PTT Ratio Sodium 140 Potassium 4.0 D Chloride 112 H Carbon Dioxide 25 Anion Gap 3.0 BUN 13 Creatinine 1.40 Est Cr Clr Drug Dosing 79.4 Est GFR ( Amer) 71.3 Est GFR (Non-Af Amer) 61.5 BUN/Creatinine Ratio 8.9 L Glucose 100 H POC Glucose Estimat Average Glucose 151 Hemoglobin A1c 6.9 H Calcium 7.7 L Magnesium Iron 18 L TIBC 406 Total Bilirubin AST ALT Alkaline Phosphatase Troponin I < 0.015 Total Protein Albumin Globulin Albumin/Globulin Ratio Lipase Vitamin B12 278 Folate 9.57 10/01/19 10/01/19 06:14 11:55 WBC RBC Hgb Hct MCV MCH MCHC RDW Std Deviation RDW Coeff of Abhijeet Plt Count MPV Immature Gran % (Auto) Neut % (Auto) Lymph % (Auto) Bath % (Auto) Eos % (Auto) Baso % (Auto) Neut # (Auto) Lymph # (Auto) Bath # (Auto) Eos # (Auto) Baso # (Auto) Immature Gran # (Auto) PT INR APTT PTT Ratio Sodium Potassium Chloride Carbon Dioxide Anion Gap BUN Creatinine Est Cr Clr Drug Dosing Est GFR ( Amer) Est GFR (Non-Af Amer) BUN/Creatinine Ratio Glucose POC Glucose 126 H 115 H Estimat Average Glucose Hemoglobin A1c Calcium Magnesium Iron TIBC Total Bilirubin AST ALT Alkaline Phosphatase Troponin I Total Protein Albumin Globulin Albumin/Globulin Ratio Lipase Vitamin B12 Folate Diagnostic Findings Chest x-ray obtained is having admission not reveal any acute cardiopulmonary findings Echocardiogram performed today revealed normal LV systolic function without regional wall motion abnormalities. No significant valvular heart disease. ECG Additional Comments: EKG demonstrated normal sinus rhythm with some minor ST segment changes PG Care Time/CCT Total # of Minutes Spent Total Time Spent with Patient: Total time spent is greater than 50% in coordination of care (as documented) at patient's floor/unit and/or counseling patient: Coding Level of Care Code 85283 Inpt Consult Level 4 Diagnoses Chest pain R07.9 CAD (coronary artery disease) I25.10 Anemia D64.9
[2019-10-01] MEDS: LAVAGE SOLUTION 4000ML PO SCH (18:24)
[2019-10-01] MEDS ORDERED: SODIUM CHLORIDE 0.9% 250 ML IV PRN (18:30)
--- NOTE | 2019-10-01 18:30 | Communication Note ---
Date of Service: October 01, 2019 Patient indicated to me that in the event that he is unable to make his own medical decisions his primary contact, Mirian Figueredo, is to be medical decis ion maker.
[2019-10-01] MEDS: ATORVASTATIN 40 MG TAB PO SCH (20:38)
[2019-10-02] MEDS: INSULIN ASPART 100 UNITS/ML 3 ML PEN SC SCH ×5 (01:58→16:45)
[2019-10-02] MEDS: LAVAGE SOLUTION 4000ML PO SCH (04:15)
[2019-10-02] MEDS: PANTOprazole 40 MG in SYRINGE 0 ML IV SCH (08:33)
[2019-10-02] MEDS: BusPIRone 15 MG TAB PO SCH (08:33)
[2019-10-02] MEDS: METOPROLOL TARTRATE 25 MG TAB PO SCH (08:33)
[2019-10-02] MEDS: ASPIRIN 81 MG ECTAB PO SCH (08:34)
[2019-10-02] MEDS: CITALOPRAM 20 MG TAB PO SCH (08:34)
[2019-10-02] MEDS: lisinopriL 5 MG TAB PO SCH (08:34)
[2019-10-02] MEDS: BuPROPion XL 300 MG TABCR PO SCH (08:34)
[2019-10-02] MEDS: FLUTICASONE FUROATE 200MCG 14 PUFFS/INHALER INH SCH (08:36)
[2019-10-02 08:56] LABS: Hematocrit (blood only) 27.8 % (42-52); Hemoglobin 8.4 g/dL (14.0-18.0); Mean Corpuscular Hemoglobin 23.5 pg (25-34); Mean Corpuscular Hgb Conc 30.2 g/dL (32-36); Mean Corpuscular Volume 77.7 fL (80-100); Mean Platelet Volume 9.4 fL (7.4-10.4); Platelet Count 260 K/uL (130-400); RDW Coefficient of Variation 17.7 % (11.5-14.5); RDW Standard Deviation 50.7 fL (36.4-46.3); Red Blood Count 3.58 M/uL (4.7-6.1); White Blood Count 5.84 K/uL (4.8-10.8)
[2019-10-02 09:31] LABS: BUN Creatinine Ratio 8.4 (10-20); Calcium 7.9 mg/dl (8.5-10.1); Creatinine Clr Calc Pharmacy 81.7 ml/min; Est GFR (African American) 73.9; Est GFR (Non-African American) 63.7; Potassium 3.9 mmol/L (3.5-5.1)
--- NOTE | 2019-10-02 09:59 | History & Physical Bridge Note ---
Date of Service October 02, 2019 History & Physical Bridge Note I have examined the patient, reviewed the History & Physical and in the interval since the performance of the History & Physical I have noted the following changes of clinical significance: no changes noted. The patient has completed his bowel prep. He notes bright red bleeding and prolapsing of his hemorrhoid during the prep. Of note, he discloses that he saw Dr. Pa of general surgery several years ago for hemorrhoids. The hemorrhoids responded with conservative therapy including Proctofoam, Witch Coty, and fiber supplement so no surgical evaluation was pursued. Keep NPO. Proceed with EGD & colonoscopy for further evaluation of anemia. Supervising Physician Co-Signing Physician Notes Agree with JOSETTE Arrington as above Abd: Soft, NT, ND, +BS Continue current therapy Proceed with EGD and Colonoscopy today.
[2019-10-02] MEDS ORDERED: ONDANSETRON INJ 2 MG/ML 2 ML VIAL IV PRN (10:56)
[2019-10-02] MEDS ORDERED: ePHEDrine sulfate 50 MG/ML AMP IV PRN (10:56)
[2019-10-02] MEDS ORDERED: ATROPINE SULFATE 0.1 MG/ML 10ML SYR IV PRN (10:56)
[2019-10-02] MEDS ORDERED: PROMETHAZINE HCL 12.5 MG in SODIUM CHLORIDE 0.9% 50 ML IV PRN (10:56)
[2019-10-02] MEDS ORDERED: LIDOCAINE HCL 2% 2 ML VIAL/AMP(20MG/ML) INFIL ONE (10:57)
[2019-10-02] MEDS ORDERED: fentaNYL citrate 100 MCG/2 ML VIAL ONE (10:57)
[2019-10-02] MEDS ORDERED: PROPOFOL IV EMULSION 10 MG/ML 20 ML VIAL IV ONE (10:57)
--- NOTE | 2019-10-02 11:04 | Anesthesiology Consultation ---
Date of Service October 02, 2019 Assessment & Plan ASA ASA3 Proposed Anesthesia Anesthesia Type: MAC Risk / Benefits Reviewed With: PT / POA / Parent / Guardian, Accepts Plan and Informed Consent Obtained History Surgery Operation Date: 10/02/19 16:30 Proposed Procedures p Colonoscopy EGD Dr. Rdz - Ty Rdz, DO Height/Weight Height: 5 ft 8 in Weight: 101.5 kg Allergies Allergy/AdvReac Type Severity Reaction Status Date / Time No Known Drug Allergies Allergy Unknown Verified 09/30/19 19:17 lactose AdvReac U Unknown Verified 09/30/19 19:17 YELLOW JACKETS Allergy Anaphylaxis Uncoded 09/30/19 19:17 Medications Home Medications Medication Instructions Recorded Confirmed Last Taken buspirone 15 mg PO BID 04/25/18 09/30/19 05/23/18 09:00 aspirin [Ecotrin Low Strength] 81 mg PO QAM #7 tab 04/28/18 09/30/19 05/23/18 09:00 nitroglycerin [Nitrostat] 0.4 mg SUBLINGUAL Q5M PRN #14 tab 04/28/18 09/30/19 Unknown albuterol sulfate 90 mcg/actuation 2 puffs INHALATION Q6H PRN #1 gm 10/29/18 09/30/19 Unknown aerosol inhaler lorazepam 0.5 mg tablet 0.5 mg PO TID PRN tab 11/12/18 09/30/19 Unknown omeprazole 20 mg tablet,delayed 20 mg PO DAILY tab 02/04/19 09/30/19 Unknown release atorvastatin 80 mg tablet 80 mg PO QPM #90 tab 06/17/19 09/30/19 Unknown lisinopril 5 mg tablet 5 mg PO DAILY #90 tab 06/17/19 09/30/19 Unknown bupropion HCl [Wellbutrin XL] 300 mg PO DAILY 07/29/19 09/30/19 Unknown triamcinolone acetonide 2 sprays INTRANASAL DAILY PRN 07/29/19 09/30/19 Unknown epinephrine 0.3 mg/0.3 mL 0.3 mg IM UD PRN #2 ea 08/12/19 09/30/19 Unknown injection, auto-injector metoprolol tartrate 25 mg tablet 12.5 mg PO BID #180 tab 09/07/19 09/30/19 Unknown biotin 5 mg PO DAILY 09/30/19 09/30/19 Unknown cetirizine [Zyrtec] 10 mg PO DAILY 09/30/19 09/30/19 Unknown citalopram 5 mg PO DAILY 09/30/19 09/30/19 Unknown coenzyme Q10 [CoQ-10] 100 mg PO DAILY 09/30/19 09/30/19 Unknown metformin 500 mg PO BID 09/30/19 09/30/19 Unknown Active Medications Generic Name Dose Route Start Last Admin Trade Name Mervin PRN Reason Stop Dose Admin Aspirin 81 mg 10/01/19 09:00 10/02/19 08:34 Ecotrin Ectab PO 10/31/19 08:59 81 mg QAM IZABELLA Administration Atorvastatin Calcium 80 mg 09/30/19 22:05 10/01/19 20:38 Lipitor PO 10/30/19 22:04 80 mg QPM IZABELLA Administration Bupropion HCl 300 mg 10/01/19 09:00 10/02/19 08:34 Wellbutrin-Xl PO 10/31/19 08:59 300 mg DAILY IZABELLA Administration Buspirone HCl 15 mg 09/30/19 22:05 10/02/19 08:33 Buspar PO 10/30/19 22:04 15 mg BID IZABELLA Administration Citalopram Hydrobromide 5 mg 10/01/19 09:00 10/02/19 08:34 Celexa PO 10/31/19 08:59 5 mg DAILY IZABELLA Administration Fluticasone Furoate 1 puffs 10/01/19 09:00 10/02/19 08:36 Arnuity Ellipta 200mcg INH 10/31/19 08:59 1 puffs DAILY IZABELLA Administration Pantoprazole Sodium 40 mg/ 10 mls @ 5 mls/min 09/30/19 22:05 10/02/19 08:33 Syringe IV 10/30/19 22:04 5 mls/min BID IZABELLA Administration Insulin Aspart 0 units 10/01/19 00:00 10/02/19 06:38 Novolog Flexpen SC 10/31/19 00:00 Not Given Q6 IZABELLA Lisinopril 5 mg 10/01/19 09:00 10/02/19 08:34 Zestril PO 10/31/19 08:59 5 mg DAILY IZABELLA Administration Metoprolol Tartrate 12.5 mg 09/30/19 22:05 10/02/19 08:33 Lopressor PO 10/30/19 22:04 12.5 mg BID IZABELLA Administration NPO Date Last Intake of Fluids: 10/01/19 Time Last Intake of Fluids: 18:00 Date Last Intake of Solids: 09/30/19 Time Last Intake of Solids: 23:30 Past Medical History Medical History Cardiac arrest April 2018 Coronary disease PCI to the LAD April 2018 Depression Exercise-induced asthma GERD (gastroesophageal reflux disease) (Acute) Hyperlipidemia Hypertension (Acute) Prediabetes Exercise / Class Metabolic Activity II 4-5 Yardwork/Stairs/Walk up hill Past Family History Family History Mother Diabetes Father Hypertension Denies family history of Prostate cancer Myocardial infarction Colorectal cancer Past Surgical History Surgical History No pertinent past surgical history Past Anesthesia History No Hx of Anesthesia Complications and No Family Hx of Anesthesia Complications History of PONV No Hx of PONV and No Hx of Motion Sickness Social History Smoking Status: Former smoker tobacco type: cigarettes Smoking cigarettes per day: 20 Do You Dip or Chew Tobacco: No Hx Alcohol Use: Yes Alcohol type: hard liquor alcohol intake frequency: 0-2 drinks per day Hx Substance Use: No substance use type: does not use Review of Systems denies fever/cough/ colds/ chest pain/ SOB/ SHEA Constitutional: no fever and no chills Respiratory: no cough and no dyspnea denies SHEA Cardiovascular: no chest pain and no dyspnea on exertion Physical Exam Vital Signs Last Vital Signs Temp 36.7 C 10/02/19 10:52 Pulse 81 10/02/19 10:52 Resp 16 10/02/19 10:52 BP 157/99 H 10/02/19 10:52 Pulse Ox 95 10/02/19 10:52 ENMT Mouth: no TMJ abnormality and no dentition abnormality Thyromental Distance: > or= 3.5 Finger Breadths Mallampati Class: II Neck neck extension not limited Respiratory normal respiratory effort; no respiratory distress Auscultation: lungs clear to auscultation bilaterally Cardiovascular Rate/Rhythm: regular rate and regular rhythm Neurologic moves all extremities Psychiatric Orientation: alert and oriented x 3 Testing Laboratory Results 10/02/19 08:27 10/02/19 08:27 PT 9.9 Seconds (9.0-12.0) 09/30/19 17:48 INR 0.9 (0.9-1.1) 09/30/19 17:48 APTT 24.7 Seconds (21.0-31.0) 09/30/19 17:48 Hemoglobin A1c 6.9 % (4.5-5.6) H 10/01/19 05:23 Blood Type O Positive 10/01/19 18:48 Antibody Screen NEGATIVE 10/01/19 18:48 10/02/19 10/02/19 06:23 01:55 POC Glucose 107 H 106 H
--- NOTE | 2019-10-02 11:53 | Anesthesiology Progress Note ---
Date of Service October 02, 2019 Anesthesia Post Procedure Vital Signs Vital Signs: Temp Pulse Resp BP Pulse Ox 10/02/19 11:51 74 18 120/72 96 10/02/19 11:37 72 16 106/65 95 10/02/19 10:52 36.7 C 81 16 157/99 H 95 10/02/19 07:46 36.6 C 75 18 131/77 94 10/02/19 04:15 36.7 C 75 16 116/72 91 10/01/19 23:49 36.5 C 69 18 122/72 93 10/01/19 20:25 36.7 C 78 20 149/84 H 97 10/01/19 16:08 36.7 C 73 23 137/82 97 10/01/19 11:59 36.7 C 73 19 131/81 96 Pain Intensity Medial Chest: Pain Intensity: 3 Transfer of Care Handoff Completed per policy Notes Mental Status: alert / awake / arousable and participated in evaluation Patient Amnestic to Procedure: Yes Nausea / Vomiting: adequately controlled Pain: adequately controlled Airway Patency, RR, SpO2: stable & adequate BP & HR: stable & adequate Hydration State: stable & adequate Anesthetic Complications: no major complications apparent and Pt Satisfied with anesthetic care
--- NOTE | 2019-10-02 12:03 | Electrocardiogram Report ---
Test Reason : Blood Pressure : / mmHG Vent. Rate : 067 BPM Atrial Rate : 067 BPM P-R Int : 184 ms QRS Dur : 100 ms QT Int : 386 ms P-R-T Axes : 045 034 028 degrees QTc Int : 407 ms Normal sinus rhythm Incomplete right bundle branch block Normal ECG When compared with ECG of 01-OCT-2019 07:04, No significant change was found Confirmed by Luis Montes ([id number]) on 10/02/2019 12:02:46 PM Referred By: REFERRED SELF Confirmed By:Luis Montes
--- NOTE | 2019-10-02 12:03 | GI REPORT ---
Patient Name: Slick Gonsalez Procedure Date: 10/02/2019 11:06 AM Date of : 1975 Admit Type: Inpatient Age: 44 Gender: Male Attending MD: Ty Rdz DO Procedure: Upper GI endoscopy Providers: Ty Rdz DO Referring MD: Jannette Coe Indications: Hematochezia Medicines: Monitored Anesthesia Care Complications: No immediate complications. Estimated Blood Loss: Estimated blood loss: none. Procedure: Pre-Anesthesia Assessment: - Prior to the procedure, a History and Physical was performed, and patient medications and allergies were reviewed. The patient's tolerance of previous anesthesia was also reviewed. The risks and benefits of the procedure and the sedation options and risks were discussed with the patient. All questions were answered, and informed consent was obtained. Prior Anticoagulants: The patient has taken aspirin, last dose was 1 day prior to procedure. ASA Grade Assessment: III - A patient with severe systemic disease. After reviewing the risks and benefits, the patient was deemed in satisfactory condition to undergo the procedure. After obtaining informed consent, the endoscope was passed under direct vision. Throughout the procedure, the patient's blood pressure, pulse, and oxygen saturations were monitored continuously. The Endoscope was introduced through the mouth, and advanced to the second part of duodenum. The upper GI endoscopy was accomplished without difficulty. The patient tolerated the procedure well. Findings: The esophagus was normal. A small hiatal hernia was present. Localized moderate inflammation characterized by erosions was found in the gastric antrum. Biopsies were taken with a cold forceps for histology. The examined duodenum was normal. Impression: - Normal esophagus. - Small hiatal hernia. - Gastritis. Biopsied. - Normal examined duodenum. Recommendation: - Return patient to [facility] for [facility] care. - Advance diet as tolerated. - Continue present medications. - Await pathology results. Ty Rdz DO 10/02/2019 12:03:33 PM This report has been signed electronically. Note Initiated On: 10/02/2019 11:06 AM Number of Addenda: 0 I attest to the content of the Intraoperative Record and orders documented therein, exceptions below {[id number]}
--- NOTE | 2019-10-02 12:06 | GI REPORT ---
Patient Name: Slick Gonsalez Procedure Date: 10/02/2019 11:05 AM Date of : 1975 Admit Type: Inpatient Age: 44 Gender: Male Attending MD: Ty Rdz DO Procedure: Colonoscopy Providers: Ty Rdz DO Referring MD: Jannette Coe Indications: Hematochezia Medicines: Monitored Anesthesia Care Complications: No immediate complications. Estimated Blood Loss: Estimated blood loss: none. Procedure: Pre-Anesthesia Assessment: - Prior to the procedure, a History and Physical was performed, and patient medications and allergies were reviewed. The patient's tolerance of previous anesthesia was also reviewed. The risks and benefits of the procedure and the sedation options and risks were discussed with the patient. All questions were answered, and informed consent was obtained. Prior Anticoagulants: The patient has taken aspirin, last dose was 1 day prior to procedure. ASA Grade Assessment: III - A patient with severe systemic disease. After reviewing the risks and benefits, the patient was deemed in satisfactory condition to undergo the procedure. After I obtained informed consent, the scope was passed under direct vision. Throughout the procedure, the patient's blood pressure, pulse, and oxygen saturations were monitored continuously. The scope was introduced through the anus and advanced to the terminal ileum. The colonoscopy was performed without difficulty. The patient tolerated the procedure well. The quality of the bowel preparation was good. The terminal ileum, ileocecal valve, appendiceal orifice, and rectum were photographed. Findings: Bleeding external and internal hemorrhoids were found during retroflexion and during perianal exam. The hemorrhoids were medium-sized. The exam was otherwise without abnormality. Impression: - Bleeding external and internal hemorrhoids. - The examination was otherwise normal. - No specimens collected. Recommendation: - Return patient to [facility] for ongoing care. - Advance diet as tolerated. - Refer to a surgeon at appointment to be scheduled secondary to medium sized bleeding hemorrhoids. Ty Rdz DO 10/02/2019 12:05:48 PM This report has been signed electronically. Note Initiated On: 10/02/2019 11:05 AM Number of Addenda: 0 I attest to the content of the Intraoperative Record and orders documented therein, exceptions below {[id number]}
--- NOTE | 2019-10-02 17:52 | Discharge Summary ---
Date of Service October 02, 2019 Admission HPI Per Admitting Provider 44-year-old male presents to the ER with a 10-minute episode of left chest/upper left abdominal pain that started at rest. He took a nitroglycerin and the pain resolved. The pain did not radiate. He was not sweating or nauseated. The patient states that in the last 2 weeks, he has noticed some dyspnea on exertion although there has been no chest pain on exertion. this pt has a significant history of sudden after stress testing and subsequent stemi and LAD stent April of 2018. He typically follows with Dr Velarde. he states he has completed his brillinta and remains on aspirin. He is also found to have a microcytic anemia and states he typically has been bothered by a severely bleeding internal hemorrhoid, he states that at times it makes the toilet bowel dark red, he is found to be heme positive here in the ER Most recently he has been bothered by PASCUAL and has been in contact with Dr Reyes regarding asthma, he did have PFT's 11/17 with only very mild obstructive airway disease The patient has not had cough, cold or congestion. He has not had a fever. He has no known coronavirus exposures. Patient has never had a DVT or PE, he has no family history of this diagnosis. He has not been immobile in a plane, car or train. Admission Exam Per Admitting Provider The patient appeared well nourished and normally developed. he appeared anxious Vital signs as documented. Head exam is normocephalic atraumatic no scleral icterus Neck is without JVD, thyromegaly, or carotid bruits. Lungs are clear to auscultation, no focal loss of breath sounds, no wheezes heard Cardiac exam, Rhythm is regular.. No murmurs, rubs or gallops. Abdominal exam reveals normal bowel sounds, soft non tender, no masses rectal exam performed by ER shows heme positive stools Extremities are nonedematous and both pedal pulses are normal. Neurologic exam is alert and oriented, no focal loss of strength or sensation Skin is without bruises or rashes Psychologically is without concerns for anxiety or depression Principal Diagnosis bright red blood per rectum hemorrhoids, internal and external Anemia Chest pain Discharge Exam Constitutional WD/WN, vitals as above Eyes PERRL, conjunctivae normal, anicteric sclerae ENMT external ear and nose normal, oropharynx normal Neck normal visual inspection Respiratory normal respiratory effort, lungs clear to auscultation Cardiovascular RRR, no murmur, no edema - Mary's negative Gastrointestinal (Abdomen) - nTTP, soft, no guarding Skin no rashes, warm and dry Psychiatric A+Ox3, euthymic affect Discharge Data Allergies Allergy/AdvReac Type Severity Reaction Status Date / Time No Known Drug Allergies Allergy Unknown Verified 09/30/19 19:17 lactose AdvReac U Unknown Verified 09/30/19 19:17 YELLOW JACKETS Allergy Anaphylaxis Uncoded 09/30/19 19:17 Consultations 09/30/19 18:57 ED Decision to Admit Stat 09/30/19 22:05 Consult Cardiology Routine Consult Gastroenterology Routine Procedures Performed Operation Date: 10/02/19 16:30 Actual Procedures p EGD Biopsy Cytology - Ty Hewitt. Case, DO s Colonoscopy - Ty Hewitt. Case, DO Hospital Course (1) Chest pain: 44-year-old male presents to the ER with a 10-minute episode of left chest/upper left abdominal pain that started at rest. He took a nitroglycerin and the pain resolved. Chest pain: - 10 minute episode of chest pain, resolved by nitroglycerin - initial EKG concerning for some anterior lead ST depressions, not present on repeat - troponin negative x2 - Cardiology consulted, did not think that chest pain was cardiac in nature - with known cardiac history and stents, anemia can precipitate chest pain; however will continue to monitor given patient sudden cardiac history with subsequent stenting of LAD Anemia: - hgb 8.9 on admission, 8.4 on discharge - with history of internal hemorrhoid with known profuse bleeds - GI consulted and EGD and colonoscopy performed with findings of hiatal hernia, gastritis and bleeding internal internal and external hemorrhoids - Will need follow up with colorectal surgery to address Hemorrhoids - follow up H&H in 3 days to monitor blood loss - Celiac panel pending, follow up outpatient - continue home PPI Total Time Total Time Spent Total Time Spent (In Minutes): see attending attestation Discharge Plan Discharge Items Patient Disposition: Home - Self-Care Reason For Visit: CHEST PAIN,SYMPTOMATIC ANEMIA Discharge Diagnosis: hemorrhoids Condition on Discharge: Good Activity: Resume your previous activity Non-emergency contact: Primary Care Provider and Security Specialist Call non-emergency contact if: your symptoms worsen Follow-up/Referrals: Kareem Santillan MD [Primary Care Provider] - Diet: Regular Addtl Attending Provider Instructions: Chest pain and bleeding: You came to the hospital for chest pain and bleeding from your rectum. We had cardiology evaluate you while you were in the hospital and determined that your chest pain was not likely cardiac in origin. You were also seen by the Security Specialist and they did a upper and lower scope on you. The findings of the scope were reviewed with you and consisted of gastritis, or inflammation of your stomach, a hiatal hernia, and both internal and external Hemorrhoids that were bleeding. You were no longer bleeding prior to the scope and your lab values were reassuring prior to discharge from the hospital. As we discussed the finding of a hiatal hernia are common but are likely contributing to your reflux. You can discuss the findings with your primary doctor and continue your Omeprazole. For your Hemorrhoids you will need to see a colorectal surgeon to have these surgically addressed. Follow up: It will be important for you to follow up within 7 days of discharge from the hospital. You have a appointment withe Dr. Santillan on , but I would call in and see if they would like to see you sooner, and when they would like you to have any blood work drawn prior to your visit. Return precautions: If you develop worsening of the bleeding we will want you to call or come in as we discussed. If you are feeling lightheaded, or dizzy again we would want you to call or come in. If you develop fevers or abdominal pain with nausea and vomiting that would be another indication to call or come in the the ER. Pending Studies at Discharge: Yes Studies:: pathology from gastric biopsy Stand-Alone Forms: [facility], Smoking Cessation Medications and DC Order Prescriptions: Continued atorvastatin 80 mg tablet 80 mg PO QPM Qty: 90 RF: 3 lisinopril 5 mg tablet 5 mg PO DAILY Qty: 90 RF: 3 epinephrine 0.3 mg/0.3 mL auto-injector 0.3 mg IM UD PRN (Reason: severe allergic reaction) Qty: 2 RF: 1 metoprolol tartrate 25 mg tablet 12.5 mg PO BID Qty: 180 RF: 3 lorazepam 0.5 mg tablet 0.5 mg PO TID PRN (Reason: Anxiety) RF: 0 omeprazole 20 mg tablet,delayed release (DR/EC) 20 mg PO DAILY RF: 0 albuterol sulfate 90 mcg/actuation HFA aerosol inhaler 2 puffs inhalation Q6H PRN (Reason: shortness of breath or wheezing) Qty: 1 RF: 3 buspirone 15 mg tablet 15 mg PO BID RF: 0 nitroglycerin [Nitrostat] 0.4 mg Tablet, Sublingual 0.4 mg Sublingual Q5M PRN (Reason: chest pain) Qty: 14 RF: 0 aspirin [Ecotrin Low Strength] 81 mg Tablet,Delayed Release (Dr/Ec) 81 mg PO QAM Qty: 7 RF: 0 bupropion HCl [Wellbutrin XL] 300 mg tablet extended release 24 hr 300 mg PO DAILY RF: 0 triamcinolone acetonide 55 mcg aerosol,spray 2 sprays intranasal DAILY PRN (Reason: Nasal Congestion) RF: 0 citalopram 10 mg tablet 5 mg PO DAILY RF: 0 cetirizine [Zyrtec] 10 mg Tablet 10 mg PO DAILY RF: 0 coenzyme Q10 [CoQ-10] 100 mg Capsule 100 mg PO DAILY RF: 0 metformin 500 mg tablet extended release 24 hr 500 mg PO BID RF: 0 biotin 5 mg Tablet 5 mg PO DAILY RF: 0 Discharge Orders: Discharge Order (Routine); Ordered 10/02/19 Ordered By: Byron Partida/Other Patient Handouts: Anemia, Diabetes and Heart Disease, Healthy Meals for Diabetes, Treating Gastritis, Understanding Gastritis, Diabetes Exercise Get Started, Understanding Hemorrhoids, A1C Admission Data Admit Date/Time: 09/30/19 19:05 Attending Provider: Jannette Coe Admit Provider: Fernando Esteban Primary Care Provider: Kareem Santillan Other Providers: Fernando Esteban ; Alfie Mcmullen ; Ty Rdz Other Interventions: Discharge Summary Assessment (RN) Last Done: 10/02/19 16:47 DC Date/Time DO NOT enter until pt leaves facility: 10/02/19 17:34 CBC Results Results Complete Blood Count Results: RBC 3.58 M/uL (4.7-6.1) L 10/02/19 WBC 5.84 K/uL (4.8-10.8) 10/02/19 Hgb 8.4 g/dL (14.0-18.0) L 10/02/19 Hct 27.8 % (42-52) L 10/02/19 Plt Count 260 K/uL (130-400) 10/02/19 Results BMP Results: Sodium 144 mmol/L (136-145) 10/02/19 Potassium 3.9 mmol/L (3.5-5.1) 10/02/19 Chloride 114 mmol/L (98-107) H 10/02/19 BUN 11 mg/dl (7-18) 10/02/19 Creatinine 1.36 mg/dl (0.6-1.4) 10/02/19 Glucose 90 mg/dl (70-99) 10/02/19 Resident Activity Tracking Resident Involvement: Resident Care Provided Care Provided: Adult Hospital Medicine
[2019-10-05 14:39] LABS: IgA Serum 184 mg/dL (47-310); Tis Trans IgA 1 U/mL
--- NOTE | 2019-10-12 09:12 | Coding Query ---
ANEMIA To promote full compliance with coding requirements relating to patient care, physician participation is requested in all cases of supervisor in circuit testing uncertainty. Please assist us with the question(s) below: Coding Question(s): The record reflects the following clinical findings: Anemia If these findings are indicative of anemia, please specify the known or suspected type by placing an "X" within the parenthesis (x). If other, please document type. Examples are: (x ) Acute blood loss anemia ( ) Acute Postoperative blood loss anemia ( ) Acute postoperative anemia due to dilutional fluids ( ) Chronic blood loss anemia ( ) Anemia of chronic disease ( ) Aplastic anemia ( ) Anemia due to renal disease ( ) Anemia in neoplastic disease ( ) Iron deficient anemia ( ) Anemia, unspecified or other ( ) Other: (please specify) ( ) Unable to determine Thank you Heather LEE
== END 2019-10-02 17:34 | disposition home or self-care (01) | DRG 393 ==
LOC: ED 17:04 → EDINP 19:05 → SUATTDRO 19:05 → 2S 10-01 04:33